=== PATIENT | male | born 1955 | race Caucasian/White ===

== ENCOUNTER 2018-01-20 22:01 | Emergency (ER) | payer SELFPAY ==
[2018-01-20] MEDS ORDERED: CIPROFLOXACIN-HC OTIC SUSP 10 ML AS ONE (22:52)
[2018-01-20] MEDS ORDERED: IBUPROFEN 800 MG TABLET PO ONE (22:58)
--- NOTE | 2018-01-20 22:58 | ER Document Report ---
HPI - HPI Patient complains to provider of: Left ear pain Time Seen by Provider: 01/20/18 22:47 Pain Level: 2 Context: Patient is a 62-year-old male presenting to the emergency department complaining of left ear pain. Patient states his left ear has been hurting since this morning. Patient denies any cough, congestion, runny nose, fever, nausea, vomiting, chest pain, abdominal pain, shortness of breath. Patient also denies any swimming or putting any foreign bodies in his left ear. Patient states "I have had so many ear infections in the past." Past medical history: None Medications: None Allergies: Penicillin Patient admits to cigarette smoking, denies illicit drug use, denies EtOH use. Past Medical History - General Information source: Patient - Social History Smoking Status: Current Every Day Smoker Lives with: Family Family History: Reviewed & Not Pertinent Vertical Provider Document - CONSTITUTIONAL Agree With Documented VS: Yes Notes: GENERAL: Alert, interacts well. No acute distress. HEAD: Normocephalic, atraumatic. EYES: Pupils equal, round, and reactive to light. Extraocular movements intact. ENT: Oral mucosa moist, tongue midline. Patient has tragal tenderness on the left ear, canal is erythematous and swollen. TM is visualized and within normal limits. Right TM and canal within normal limits. No mastoid tenderness or redness bilaterally. NECK: Full range of motion. Supple. Trachea midline. Minor anterior cervical lymphadenopathy noted. LUNGS: Clear to auscultation bilaterally, no wheezes, rales, or rhonchi. No respiratory distress. HEART: Regular rate and rhythm. No murmur ABDOMEN: Soft, non-tender. Non-distended. Bowel sounds present in all 4 quadrants. EXTREMITIES: Moves all 4 extremities spontaneously. No edema, normal radial and dorsalis pedis pulses bilaterally. No cyanosis. BACK: no cervical, thoracic, lumbar midline tenderness. No saddle anesthesia, normal distal neurovascular exam. NEUROLOGICAL: Alert and oriented x3. Normal speech. cranial nerves II through XII grossly intact. PSYCH: Normal affect, normal mood. SKIN: Warm, dry, normal turgor. No rashes or lesions noted. - INFECTION CONTROL TRAVEL OUTSIDE OF THE [place] IN LAST 30 DAYS: No Course - Re-evaluation Re-evalutation: 01/20/18 22:55 Discussed with the patient need for antibiotic drops versus oral antibiotics. Patient states he has had this in the past. Discussed follow-up with primary care provider and then ENT as needed. No signs of mastoiditis at this time. Vital signs reviewed, nursing notes reviewed. - Vital Signs Vital signs: Temp Pulse Resp BP Pulse Ox 98.1 F 85 155/76 H 95 01/20/18 22:46 01/20/18 22:46 01/20/18 22:46 01/20/18 22:46 Discharge - Discharge Clinical Impression: Otitis externa Qualifiers: Otitis externa type: unspecified type Chronicity: acute Laterality: left Qualified Code(s): H60.502 - Unspecified acute noninfective otitis externa, left ear Condition: Stable Disposition: HOME, SELF-CARE Instructions: Use of Ear Drops ([facility]), Otitis Externa ([facility]) Additional Instructions: As we discussed you have been seen and treated in the emergency department for an outer ear infection. Please use antibiotics as prescribed. Please take over -the-counter Tylenol and Motrin for pain. Please return to the emergency room for any other concerning symptoms. Please make an appointment with your primary care provider in the next 24-48 hours. Please instill 4 drops in the affected ear twice daily for the next 7 days.
[2018-01-20] MEDS ORDERED: CIPROFLOXACIN-HC OTIC SUSP 10 ML ONE (23:06)
[2018-01-21 00:08] VITALS: BP 136/87
== END 2018-01-20 23:50 | disposition home or self-care (01) ==
LOC: ER 22:01
DX: H60.502 Unspecified acute noninfective otitis externa, left ear (principal); H92.02 Otalgia, left ear; F17.200 Nicotine dependence, unspecified, uncomplicated; Z88.0 Allergy status to penicillin
CPT/HCPCS: 99282; J3490

== ENCOUNTER 2018-10-13 09:53 | Emergency (ER) | payer SELFPAY ==
[2018-10-13 09:59] VITALS: BP 144/74
--- NOTE | 2018-10-13 10:44 | ER Document Report ---
ED Eye Complaint - General Chief Complaint: Eye Problem Stated Complaint: RIGHT EYE IRRITATION, REDNESS Time Seen by Provider: 10/13/18 10:25 Primary Care Provider: KIET CARABALLO MD [ACTIVE STAFF] - Follow up as needed Mode of Arrival: Ambulatory Information source: Patient Notes: 63-year-old male presents to ED for complaint of pain and redness and swelling to the lower part of his right eye. He states that started yesterday. He states he woke up this morning he had to clean his eye because of drainage. He does have a stye to the right lower lid. He is alert oriented respirations regular and unlabored speaking in full sentences. He states his only medical history of Salmonella and he smokes 1 to 2 packs a day. TRAVEL OUTSIDE OF THE [place] IN LAST 30 DAYS: No - HPI Onset: Yesterday Eye location: Right Injury: No Occurred at: Home Quality of pain: Burning Severity: Mild Associated symptoms: Itching, Pain, Matting, Eyelid swelling - Related Data Allergies/Adverse Reactions: Penicillins Allergy (Verified 01/20/18 22:02) Past Medical History - General Information source: Patient - Social History Smoking Status: Current Every Day Smoker Cigarette use (# per day): Yes - 2 pack a day Chew tobacco use (# tins/day): No - 4 minutes Smoking Education Provided: Yes Frequency of alcohol use: None Drug Abuse: None Occupation: [employer] Lives with: Alone Family History: Reviewed & Not Pertinent Patient has suicidal ideation: No Patient has homicidal ideation: No - Past Medical History Cardiac Medical History: Reports: None Pulmonary Medical History: Reports: None EENT Medical History: Reports: None Neurological Medical History: Reports: None Endocrine Medical History: Reports: None Renal/ Medical History: Reports: None Malignancy Medical History: Reports None GI Medical History: Reports: None Musculoskeletal Medical History: Reports None Skin Medical History: Reports None Psychiatric Medical History: Reports: None Traumatic Medical History: Reports: None Infectious Medical History: Reports: None Surgical Hx: Negative Past Surgical History: Reports: None - Immunizations Immunizations up to date: Yes Hx Diphtheria, Pertussis, Tetanus Vaccination: Yes Review of Systems - Review of Systems Constitutional: No symptoms reported EENT: Eye pain, Eye discharge Cardiovascular: No symptoms reported Respiratory: No symptoms reported Gastrointestinal: No symptoms reported Genitourinary: No symptoms reported Male Genitourinary: No symptoms reported Musculoskeletal: No symptoms reported Skin: No symptoms reported Hematologic/Lymphatic: No symptoms reported Neurological/Psychological: No symptoms reported Physical Exam - Vital signs Vitals: Temp Pulse Resp BP Pulse Ox 98.4 F 80 20 144/74 H 96 10/13/18 09:58 10/13/18 09:58 10/13/18 09:58 10/13/18 09:58 10/13/18 09:58 Interpretation: Normal - General General appearance: Appears well, Alert - HEENT Head: Normocephalic, Atraumatic Eyes: Normal Conjunctiva: Normal Cornea: Normal Eyelashes: Normal Pupils: PERRL Lids everted for exam: right: Stye Anterior chamber: Normal Fundascopic: Normal Visual clay normal: Yes Ears: Normal External canal: Normal Tympanic membrane: Normal Sinus: Normal Nasal: Normal Mouth/Lips: Normal Mucous membranes: Normal Pharynx: Normal Neck: Normal - Respiratory Respiratory status: No respiratory distress Chest status: Nontender Breath sounds: Normal Chest palpation: Normal - Cardiovascular Rhythm: Regular Heart sounds: Normal auscultation Murmur: No - Abdominal Inspection: Normal Distension: No distension Bowel sounds: Normal Tenderness: Nontender Organomegaly: No organomegaly - Back Back: Normal, Nontender - Extremities General upper extremity: Normal inspection, Nontender, Normal color, Normal ROM, Normal temperature General lower extremity: Normal inspection, Nontender, Normal color, Normal ROM, Normal temperature, Normal weight bearing. No: Yudi's sign - Neurological Neuro grossly intact: Yes Cognition: Normal Orientation: AAOx4 [place] Coma Scale Eye Opening: Spontaneous [place] Coma Scale Verbal: Oriented Joe Coma Scale Motor: Obeys Commands [place] Coma Scale Total: 15 Speech: Normal Motor strength normal: LUE, RUE, LLE, RLE Sensory: Normal - Psychological Associated symptoms: Normal affect, Normal mood - Skin Skin Temperature: Warm Skin Moisture: Dry Skin Color: Normal Course - Re-evaluation Re-evalutation: 10/13/18 11:[address] Claros who agreed that this was a infected stye. Patient was started on erythromycin ointment to the eye and instructed to follow-up with ophthalmology. He was also given instruction for warm compresses to the eye. Dr. Claros did come and examined the eye before discharge. - Vital Signs Vital signs: Temp Pulse Resp BP Pulse Ox 98.4 F 80 20 144/74 H 96 10/13/18 09:58 10/13/18 09:58 10/13/18 09:58 10/13/18 09:58 10/13/18 09:58 Discharge - Discharge Clinical Impression: Infection of right tear duct Condition: Stable Disposition: HOME, SELF-CARE Additional Instructions: Sty Your examination reveals that you have a sty. This is an infection of a hair follicle in the eyelid. As the infection progresses, it forms an abscess along the edge of the eyelid. A sty causes a lot of swelling and tenderness. As the body fights the infe ction, a lump forms. The knot slowly goes away over a couple of weeks. Treatment includes applying warm compresses to the eye for 10 to 15 minutes every two or three hours. Usually, the infection will drain from the abscess spontaneously, however, some sties require surgical drainage. You may be given antibiotic eye drops to prevent the infection from spreading to the surface of the eye. If the doctor is concerned that the infection is severe, you may be given antibiotics by mouth or shot. Call the doctor at once if vision decreases, if swelling becomes severe, or if eye pain becomes severe. See the doctor for follow-up should you fail to improve as expected. Erythromycin You have been prescribed an antibiotic of the erythromycin class. These antibiotics are used for many infections, especially in penicillin-allergic patients. They're particularly useful for infections of the respiratory system. The medication will be most effective if taken before or at least two hours after meals. However, many persons will have nausea or stomach cramping with erythromycin. If this occurs, try taking the medicine with food. If the side effects are still intolerable, contact your doctor. You should not take erythromycin with non-sedating antihistamines such as Seldane or Hismanal. Call the doctor at once if you develop rash, itching, shortness of breath, or lightheadedness. FOLLOW-UP CARE: If you have been referred to a physician for follow-up care, call the physicians office for an appointment as you were instructed or within the next two days. If you experience worsening or a significant change in your symptoms, notify the physician immediately or return to the Emergency Department at any time for re-evaluation. Prescriptions: Erythromycin Base [Erythromycin Oph 1 Gm Oint Ud] 1 applic RT_EYE Q4 6 Days #1 tube Forms: Elevated Blood Pressure, Smoking Cessation Education, Return to Work Referrals: KIET CARABALLO MD [ACTIVE STAFF] - Follow up as needed
[2018-10-13] MEDS ORDERED: ERYTHROMYCIN 0.5% OPH OINTMENT 3.5 GM (ER DISP) OD SCH (10:46)
== END 2018-10-13 11:01 | disposition home or self-care (01) ==
LOC: ER 09:53
DX: H04.89 Other disorders of lacrimal system (principal); H57.11 Ocular pain, right eye; R22.0 Localized swelling, mass and lump, head; F17.210 Nicotine dependence, cigarettes, uncomplicated
CPT/HCPCS: 99283; 99406

== ENCOUNTER 2018-12-28 21:56 | Emergency (ER) | payer SELFPAY ==
[2018-12-28 22:02] VITALS: BP 161/70
[2018-12-28] MEDS ORDERED: ACETAMINOPHEN 325 MG TABLET PO ONE (22:50)
--- NOTE | 2018-12-28 22:57 | ER Document Report ---
ED Extremity Problem, Lower - General Chief Complaint: Leg Pain Stated Complaint: PAIN IN LEFT LEG Time Seen by Provider: 12/28/18 22:41 TRAVEL OUTSIDE OF THE [place] IN LAST 30 DAYS: No - HPI Notes: Patient is a 63-year-old male that presents to the emergency department for chief complaint of left knee pain. Patient states he has had a constant pain in his left knee for the last 3 weeks. He denies injury or trauma. He states that when he bends the knee it feels tight. He states the pain is mostly along the anterior aspect of his knee and is worse with bending or ambulation. He states he was seen in [place] and had a negative x-ray performed. He has not taken any medication at home for pain. He denies redness in the knee, fevers or chills Past Medical History: Reviewed in chart Past Surgical History: Reviewed in chart Social History: Denies drugs alcohol and tobacco use Family History: Reviewed and noncontributory for presenting illness Allergies: Reviewed, see documented allergy list. REVIEW OF SYSTEMS: CONSTITUTIONAL : No fever No chills No diaphoresis No recent illness EENT: No vision changes No congestion No sore throat CARDIOVASCULAR: No chest pain No palpitations RESPIRATORY: No shortness of breath No cough No difficulty breathing GASTROINTESTINAL: No abdominal pain No nausea No vomiting No diarrhea GENITOURINARY: No dysuria No hematuria No difficulty urinating MUSCULOSKELETAL: No back pain Left knee pain No arm pain SKIN: No rashes No lesions LYMPHATIC: No swollen, enlarged glands. NEUROLOGICAL: No lightheadedness No headache No weakness No paresthesias PSYCHIATRIC: No anxiety No depression PHYSICAL EXAMINATION: Vital signs reviewed, nursing noted reviewed. GENERAL: Well-appearing, well-nourished and in no acute distress. HEAD: Atraumatic, normocephalic. EYES: Eyes appear normal, extraocular movements intact, sclera anicteric, conjunctiva are normal. ENT: nares patent, oropharynx clear without exudates. Moist mucous membranes. NECK: Normal range of motion, supple without lymphadenopathy LUNGS: Breath sounds clear to auscultation bilaterally and equal. No wheezes rales or rhonchi. HEART: Regular rate and rhythm without murmurs ABDOMEN: Soft, nontender, normoactive bowel sounds. No rebound, guarding, or rigidity. No masses appreciated. EXTREMITIES: Tenderness to palpation over left medial knee joint line, small left knee effusion, no left knee erythema or calor, no bony deformity. Good range of motion, no pitting or edema. NEUROLOGICAL: No focal neurological deficits. Moves all extremities spontaneously Motor and sensory grossly intact on exam. PSYCH: Normal mood, normal affect. SKIN: Warm, Dry, normal turgor, no rashes or lesions noted on exposed skin - Related Data Allergies/Adverse Reactions: Penicillins Allergy (Verified 01/20/18 22:02) Home Medications: denies Past Medical History - Social History Smoking Status: Current Every Day Smoker Chew tobacco use (# tins/day): No Frequency of alcohol use: None Drug Abuse: None Family History: Reviewed & Not Pertinent Patient has suicidal ideation: No Patient has homicidal ideation: No Renal/ Medical History: Denies: Hx Peritoneal Dialysis - Immunizations Immunizations up to date: Yes Hx Diphtheria, Pertussis, Tetanus Vaccination: Yes Physical Exam - Vital signs Vitals: Temp Pulse Resp BP Pulse Ox 98.1 F 78 20 161/70 H 98 12/28/18 22:01 12/28/18 22:01 12/28/18 22:01 12/28/18 22:01 12/28/18 22:01 Course - Re-evaluation Re-evalutation: 12/28/18 22:56 Vitals reviewed. Nursing notes reviewed. Patient given Tylenol for pain. He has a small left knee effusion and tenderness over his medial joint line. Clinically I suspect medial meniscal injury. He has had negative x-rays performed at another facility and has no bony tenderness, deformity, or new trauma to necessitate repeat x-rays today. Patient likely requiring MRI. He will be referred to orthopedic surgery for outpatient follow-up. - Vital Signs Vital signs: Temp Pulse Resp BP Pulse Ox 98.1 F 78 20 161/70 H 98 12/28/18 22:01 12/28/18 22:01 12/28/18 22:01 12/28/18 22:01 12/28/18 22:01 Discharge - Discharge Clinical Impression: Left knee pain Qualifiers: Chronicity: acute Qualified Code(s): M25.562 - Pain in left knee Condition: Stable Disposition: HOME, SELF-CARE Instructions: Knee Effusion ([facility]), Suspected Internal Knee Injury ([facility]) Additional Instructions: Please return to the emergency department if you have any worsening, or concern of your symptoms. Please return to the emergency department if you develop chest pain, difficulty breathing, severe abdominal pain, or ongoing vomiting. Please follow-up with your primary care physician in 2-3 days and any other recommended physicians. If prescribed, take all medications as directed. If you have any questions or concerns do not hesitate to return the emergency department for evaluation. Referrals: JESSICA ROMO MD [ACTIVE STAFF] - Follow up as needed
== END 2018-12-28 23:10 | disposition home or self-care (01) ==
LOC: ER 21:56
DX: M25.562 Pain in left knee (principal); M79.605 Pain in left leg; F17.200 Nicotine dependence, unspecified, uncomplicated
CPT/HCPCS: 99283